=== PATIENT | male | born 1985 | race American Indian/Alaskan Native ===

== ENCOUNTER 2021-05-07 09:15 | Emergency (ER) | payer SELFPAY ==
[2021-05-07 09:44] VITALS: BP 116/81
--- NOTE | 2021-05-07 10:09 | Emergency Department Report ---
ED Male HPI - General Chief complaint: Urogenital-Male Stated complaint: TINGLING WHEN URINATING Time Seen by Provider: 05/07/21 09:59 Source: patient, family Mode of arrival: Ambulatory Limitations: No Limitations - History of Present Illness Initial comments: 35-year-old male presents to the ER today with complaints of irritation and discomfort after urinating. This is a symptom started about a week ago. He states that he did go to a local clinic called [facility] when his symptoms first started. He states that he did check his urine for gonorrhea and chlamydia as well as blood work for syphilis, HIV and herpes but he states that he had to pay for each lab and he could not afford urinalysis and a trichomonas so he was unable to get that done. He states that the results of the gonorrhea, chlamydia as well as the lab testing for the STDs were negative. He was not given any antibiotics. He denies any penile discharge. Denies any hematuria. He denies any testicular pain or swelling. He denies any abdominal pain or lower back pain. He states that his only had 1 sexual partner for the past 5 years. He states that partner has not reported any symptoms of being positive for any STDs. Complaint: dysuria -: week(s) (1) - Related Data Allergies Allergy/AdvReac Type Severity Reaction Status Date / Time No Known Allergies Allergy Unverified 05/07/21 09:39 ED Review of Systems ROS: Stated complaint: TINGLING WHEN URINATING Other details as noted in HPI Comment: All other systems reviewed and negative Constitutional: denies: chills, fever Eyes: denies: eye pain, eye discharge, vision change ENT: denies: ear pain, throat pain Respiratory: denies: cough, shortness of breath, wheezing Cardiovascular: denies: chest pain, palpitations, dyspnea on exertion, edema, syncope, paroxysmal nocturnal dyspnea Gastrointestinal: denies: abdominal pain, nausea, vomiting, diarrhea, constipation, hematemesis, hematochezia Genitourinary: dysuria. denies: urgency, frequency, hematuria, discharge, testicular pain, testicular mass Musculoskeletal: denies: back pain, joint swelling, arthralgia, myalgia Skin: denies: rash, lesions, change in color, change in hair/nails, pruritus Neurological: denies: headache, weakness, numbness, paresthesias, abnormal gait, vertigo Psychiatric: denies: anxiety, depression, auditory hallucinations, visual hallucinations, homicidal thoughts ED Past Medical Hx - Past Medical History Previous Medical History?: No - Surgical History Past Surgical History?: No ED Physical Exam - General Limitations: No Limitations General appearance: alert, in no apparent distress - Head Head exam: Present: atraumatic, normocephalic, normal inspection - Eye Eye exam: Present: normal appearance, PERRL, EOMI Pupils: Present: normal accommodation - Respiratory Respiratory exam: Present: normal lung sounds bilaterally. Absent: respiratory distress, wheezes, rales, rhonchi - Cardiovascular Cardiovascular Exam: Present: normal rhythm, normal heart sounds - GI/Abdominal GI/Abdominal exam: Present: soft. Absent: distended, tenderness, guarding, rebound - Neurological Exam Neurological exam: Present: alert, oriented X3, CN II-XII intact, normal gait - Psychiatric Psychiatric exam: Present: normal affect, normal mood - Skin Skin exam: Present: intact ED Course Vital Signs 05/07/21 09:43 Temperature 98.3 F Pulse Rate 69 Respiratory 20 Rate Blood Pressure 116/81 [Right] O2 Sat by Pulse 100 Oximetry ED Medical Decision Making - Medical Decision Making Urinalysis negative for anything acute. Patient reported that he already had testing for gonorrhea, chlamydia, hepatitis, HIV and syphilis which were all negative. He also had sexual intercourse since getting this test done. He has no testicular pain or swelling. No abdominal pain or back pain. He is afebrile. Is not toxic or ill-appearing. He is neurologically intact with a normal gait. Discussed results with patient. Informed him that he will need to follow-up with the urologist especially if his symptoms continues. He will be given referral information to urology. Patient expressed understanding of instructions and agree with plan. Patient was stable at time of discharge. Critical care attestation.: If time is entered above; I have spent that time in minutes in the direct care of this critically ill patient, excluding procedure time. ED Disposition Clinical Impression: Dysuria, Urethritis Disposition: 01 HOME / SELF CARE / HOMELESS Is pt being admited?: No Does the pt Need Aspirin: No Condition: Stable Instructions: Urethritis, Adult, Dysuria Additional Instructions: I recommend that you take ibuprofen as prescribed to help with any pain or discomfort. Recommend that you follow-up with the urologist listed in your discharge instructions for further evaluation. Return to the ER if your symptoms changes or worsens in any way. Referrals: JAIMIE FIGUEROA MD [Staff Physician] - 3-5 Days AJIT PALACIOS MD [Staff Physician] - 3-5 Days Forms: STI Treatment and Prevention Time of Disposition: 11:05
[2021-05-07 10:52] LABS: Bilirubin,Urine NEG (Negative); Blood,Urine NEG (Negative); Color,Urine Yellow (Yellow); Mucus,Urine FEW /HPF; Protein,Urine <15 mg/dL mg/dL (Negative); Urobilinogen,Urine < 2.0 mg/dL (<2.0)
== END 2021-05-07 11:22 | disposition home or self-care (01) ==
LOC: ED 09:15
DX: N34.2 Other urethritis (principal); Z79.899 Other long term (current) drug therapy
CPT/HCPCS: 81001; 99283